=== PATIENT | female | born 1995 | race African-American/Black ===

== ENCOUNTER 2016-09-28 14:58 | Emergency (ER) | payer BC ==
[2016-09-28 15:25] VITALS: BP 117/56
--- NOTE | 2016-09-28 15:49 | UC ---
Throat Pain/Nasal George HPI - History of Current Complaint Chief Complaint: UCRespiratory Stated Complaint: SORE THROAT,COUGH Time Seen by Provider: 09/28/16 15:40 Hx Obtained From: Patient Hx Last Menstrual Period: 09/08/16 Onset/Duration: Gradual Onset - started 2 weeks ago with prolonged menses, which lasted 2 weeks (sexually active with females), ended 5-6 days ago. she has been feeling fatigued for 4 days, had a bout of nausea and then got ST 2 days ago Severity: Moderate Cough: None Associated Signs & Symptoms: Positive: Fever - Allergies/Home Medications Allergies/Adverse Reactions: Allergies Allergy/AdvReac Type Severity Reaction Status Date / Time No Known Allergies Allergy Verified 12/15/15 13:20 PMH/Surg Hx/FS Hx/Imm Hx Previously Healthy: Yes - Surgical History Surgical History: None - Family History Known Family History: Negative: Cardiac Disease, Hypertension, Diabetes - Social History Occupation: Employed Full-time Lives: With Family Alcohol Use: None Substance Use Type: None Smoking Status (MU): Never Smoked Tobacco Review of Systems Constitutional: Negative Skin: Negative Eyes: Negative ENT: Sore Throat Respiratory: Negative Cardiovascular: Negative Gastrointestinal: Nausea - x 1 day Genitourinary: Negative Neurological: Negative Psychological: Negative All Other Systems Reviewed And Are Negative: Yes Physical Exam Triage Information Reviewed: Yes Appearance: Well-Appearing, No Pain Distress, Well-Nourished Vital Signs: Initial Vital Signs Temp 99.1 F 09/28/16 15:06 Pulse 77 09/28/16 15:06 Resp 18 09/28/16 15:06 BP 117/56 09/28/16 15:06 Pulse Ox 100 09/28/16 15:06 Vital Signs Reviewed: Yes ENT: Positive: Pharyngeal erythema, TMs normal, Tonsillar swelling. Negative: Nasal drainage Respiratory Exam: Normal Cardiovascular Exam: Normal Abdominal Exam: Normal Abdomen Description: Positive: Nontender, No Organomegaly, Soft Musculoskeletal Exam: Normal Neurological Exam: Normal Psychological Exam: Normal Skin Exam: Normal Skin: Negative: rashes Throat Pain/Nasal Course/Dx - Differential Dx/Diagnosis Differential Diagnosis/HQI/PQRI: Sinusitis, Tonsillitis, URI Provider Diagnoses: URI Discharge - Discharge Plan Condition: Good Disposition: HOME Patient Education Materials: Upper Respiratory Infection (ED) Forms: *Work Release Referrals: Renard Alvarez MD [Primary Care Provider] - 3 Days (if no better) Additional Instructions: Drink plenty of fluids use tylenol or ibuprofen as directed for pain/fever start multi vitamin with iron every day
== END 2016-09-28 16:44 | disposition home or self-care (01) ==
LOC: UCEAST 14:58
DX: J06.9 Acute upper respiratory infection, unspecified (principal)
CPT/HCPCS: 87651; 99211; G0463

== ENCOUNTER 2016-12-06 15:31 | Emergency (ER) | payer BC ==
--- NOTE | 2016-12-06 17:26 | UC ---
Cardiac HPI - HPI Summary HPI Summary: PT HAS HAD URI SX FOR PAST WEEK OR SO. IS C/O MID STERNAL CP WITH COUGHING AND DECREASED APPETITE. SHE REPORTS SHE HAS HAD SIMILAR CP INTERMITTENTLY FOR ABOUT 5 MONTHS. NO CLEAR TRIGGER. NO NAUSEA, SOB, SWEATS. NOT PLEURITIC. DOES NOT DRINK CAFFEINE. SLEEPING WELL. 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 Negative: SOB, Fever - Allergy/Home Medications Allergies/Adverse Reactions: Allergies Allergy/AdvReac Type Severity Reaction Status Date / Time No Known Allergies Allergy Verified 12/15/15 13:20 PMH/Surg Hx/FS Hx/Imm Hx Previously Healthy: Yes - Surgical History Surgical History: None - Family History Known Family History: Positive: Cardiac Disease, Hypertension, Diabetes Family History: NO FAMILY HX OF SUDDEN CARDIAC - Social History Alcohol Use: Rare Substance Use Type: None Smoking Status (MU): Never Smoked Tobacco Review of Systems Constitutional: Negative ENT: Sore Throat, Nasal Discharge Respiratory: Cough Cardiovascular: Chest Pain Gastrointestinal: Negative Neurological: Headache All Other Systems Reviewed And Are Negative: Yes Physical Exam Triage Information Reviewed: Yes Appearance: Well-Appearing, No Pain Distress, Well-Nourished Vital Signs: Initial Vital Signs Temp 99.2 F 12/06/16 15:42 Pulse 76 12/06/16 15:42 Resp 18 12/06/16 15:42 BP 123/68 12/06/16 15:42 Pulse Ox 100 12/06/16 15:42 Vital Signs Reviewed: Yes Eyes: Positive: Conjunctiva Clear ENT: Positive: Hearing grossly normal, Pharynx normal, TMs normal Neck: Positive: Supple, Nontender, No Lymphadenopathy Respiratory Exam: Normal Respiratory: Positive: Other: - PAIN NOT REPRODUCIBLE WITH PALPATION Cardiovascular Exam: Normal Abdomen Description: Positive: Soft Musculoskeletal: Positive: No Edema Neurological: Positive: Alert Psychological: Positive: Age Appropriate Behavior Skin: Negative: rashes Diagnostics - Radiology CXR Xray Interpretation: No Acute Changes Radiology Interpretation Completed By: Radiologist - EKG Cardiac Rate: NL Cardiac Rhythm: Sinus: Normal Ectopy: None ST Segment: Normal - Clinical Impression Provider Diagnoses: 1. ACUTE URI. 2. NON CARDIAC CHEST PAIN Discharge - Discharge Plan Condition: Stable Disposition: HOME Patient Education Materials: Upper Respiratory Infection (ED), Noncardiac Chest Pain (ED) Forms: *Work Release Referrals: Renard Alvarez MD [Primary Care Provider] - 1 Week Additional Instructions: EKG AND CHEST XRAY TODAY BOTH UNREMARKABLE. YOU SEEM TO HAVE AN UPPER RESPIRATORY INFECTION THAT SHOULD RESOLVE ON IT'S OWN WITH TIME. YOU NEED TO FOLLOW-UP WITH YOUR PCP TO FURTHER WORK UP YOUR CHEST PAIN. GO TO ER WITHOUT FAIL IF YOU DEVELOP WORSENING CHEST PAIN, SHORTNESS OF BREATH, NAUSEA, SWEATS, DIZZINESS OR ANY OTHER CONCERNING SYMPTOMS.
--- NOTE | 2016-12-06 17:55 | RAD ---
INDICATION: Central chest pain. COMPARISON: No relevant prior exams available on the [facility] [place] for comparison. TECHNIQUE: Dual energy PA and routine lateral views of the chest were obtained. REPORT: Clear lungs and pleural spaces. Negative for pneumothorax. The heart, pulmonary vasculature, and mediastinal contours are unremarkable. Unremarkable osseous structures and soft tissue contours. IMPRESSION: No evidence for acute intrathoracic disease. Negative exam.
[2016-12-06 18:18] VITALS: BP 122/72
== END 2016-12-06 18:20 | disposition home or self-care (01) ==
LOC: UCEAST 15:31
DX: J06.9 Acute upper respiratory infection, unspecified (principal); R07.89 Other chest pain
CPT/HCPCS: 71020; 93005; 99212; G0463

== ENCOUNTER 2018-03-11 11:57 | Emergency (ER) | payer BC ==
--- NOTE | 2018-03-11 12:44 | UC ---
Throat Pain/Nasal George HPI - HPI Summary HPI Summary: Patient presents to urgent care reporting 3 days of head congestion, sinus pressure, ear fullness, postnasal drip, and cough. Patient states she's been taking DayQuil and NyQuil with little improvement. Patient denies chills but reports tactile temperatures. Patient coughing productive of clear to yellow sputum. Patient states she went to work yesterday but felt too ill to go today. Patient denied the flu vaccine this year. Patient with mild wheezing intermittently. Patient medications reviewed this visit. Patient without sick contacts - History of Current Complaint Chief Complaint: UCRespiratory Stated Complaint: COUGH, AND SORE THROAT Time Seen by Provider: 03/11/18 12:14 Hx Obtained From: Patient Hx Last Menstrual Period: 03/04/18 Onset/Duration: Gradual Onset Severity: Mild Pain Intensity: 0 - Allergies/Home Medications Allergies/Adverse Reactions: Allergies Allergy/AdvReac Type Severity Reaction Status Date / Time No Known Allergies Allergy Verified 03/11/18 12:17 PMH/Surg Hx/FS Hx/Imm Hx Previously Healthy: Yes - Surgical History Surgical History: None - Family History Known Family History: Positive: Cardiac Disease, Hypertension, Diabetes Family History: NO FAMILY HX OF SUDDEN CARDIAC - Social History Occupation: Employed Full-time Lives: Dormitory/Roommates Alcohol Use: Rare Substance Use Type: None Smoking Status (MU): Never Smoked Tobacco Review of Systems All Other Systems Reviewed And Are Negative: Yes Constitutional: Positive: Fatigue Eyes: Positive: Negative ENT: Positive: Sore Throat, Ear Ache, Nasal Discharge, Sinus Congestion Respiratory: Positive: Cough Physical Exam - Summary Physical Exam Summary: Vital Signs Reviewed: Yes A+Ox3, no distress, tired appearing Eyes: Conjunctiva Clear, DM. EOM intact and full ENT: Hearing grossly normal TM x 2 scant fluid, no erythema, no buldge, no retraction, congestion, boggy turbinates, + PND, mmoist, uvula midline, no exudate, no erythema Neck: Positive: Supple Respiratory: Positive: No respiratory distress, No accessory muscle use + CTA throughout no w/r Cardiovascular: RRR nl s1, s2 no m/r CBT <2 sec abd soft + BS nt/nd no guarding, no distension Musculoskeletal Exam: ZHOU x 4 without difficulty Strength Intact, ROM Intact Neurological: Positive: Alert, + sensation throughout Psychological: Positive: Normal Response To Family Skin: Positive: no rash, no ecchymosis Triage Information Reviewed: Yes Vital Signs: Initial Vital Signs Temp 98.5 F 03/11/18 12:15 Pulse 88 03/11/18 12:15 Resp 18 03/11/18 12:15 BP 118/73 03/11/18 12:15 Pulse Ox 99 03/11/18 12:15 Diagnostics - Radiology No standard instances Radiology Interpretation Completed By: Radiologist - Patient Name: ARA METCALF Medical Record#: [id number] Ordering Physician: Ebonie Lackey MD Acct.#: [id number] : 1995 Age: 22 Sex: F Location: [facility] Exam Date: 03/11/18 1250 ADM Status: REG ER Order Information: CHEST PA & LAT 2 VWS Accession Number: [id number] CPT: 84907 HISTORY: cough, fever, wheeze COMPARISONS: December 06, 2016 VIEWS: 4: Frontal dual-energy and lateral views of the chest. FINDINGS: CARDIOMEDIASTINAL SILHOUETTE: The cardiomediastinal silhouette is normal. SANDRA: The sandra are normal. PLEURA: The costophrenic angles are sharp. No pleural abnormalities are noted. LUNG PARENCHYMA: The lungs are clear. ABDOMEN: The upper abdomen is clear. There is no subphrenic gas. BONES AND SOFT TISSUES: No bone or soft tissue abnormalities are noted. OTHER: None. IMPRESSION: NO ACTIVE CARDIOPULMONARY DISEASE. <Electronically signed by Benito Rincon MD in OV> 03/11/18 1304 Dictated By: Benito Rincon MD Dictated Date/Time: 03/11/18 1304 Transcribed Date/Time: 03/11/18 1304 Copy to: CC:Ebonie Lackey MD; Renard Alvarez MD [facility] [place] [facility] - [place] [facility] Urgent [facility] [place] [address] [place] [address] ph ) ph ([phone]) ph ([phone]) This report is only to be considered final once signed by the Provider(s) as displayed in the "<Electronically Signed by >" field (s). Absence of a signature indicates the report is in a draft status and still needs to be finalized. In the event this document was created by someone other than the signing Provider, the individual initiating the document will be listed in the "Entered by:" or "Dictated by:" adhikari. 1 of 1 Re-Evaluation - Re-Evaluation First Eval Comment: + influenza B. Will start tamiflu. hydrate. motrin/apap. return precautions. work note. rest Throat Pain/Nasal Course/Dx - Differential Dx/Diagnosis Provider Diagnosis: Influenza B Discharge - Sign-Out/Discharge Documenting (check all that apply): Patient Departure All imaging exams completed and their final reports reviewed: Yes - Discharge Plan Condition: Stable Disposition: HOME Prescriptions: Oseltamivir CAP* [Tamiflu CAP*] 75 mg PO BID #10 cap Patient Education Materials: Influenza (DC) Forms: *Gen. Provider Communication Referrals: Renard Alvarez MD [Primary Care Provider] - Additional Instructions: - Stay well hydrated. Drink plenty of non-alcoholic, non-caffinated beverages. - Alternate ibuprofen (Advil, Motrin) 600mg and Tylenol every 3 hours for pain or fever. Take with food. Do NOT take for more than 4-5 days. - These infections are spread by secretions - do NOT share eating or drinking utensils - clean items you share with other people such as cell phones, computer mouse, TV remote, computer tablets,etc. Once you start to feel better, change your toothbrush and your pillowcase. - humidify the air in the room where you sleep - boil water, run a hot steam shower, vaporizer, cups of water by heat register - okay to take over the counter decongestant and cough medication - get plenty of restful sleep. - Take Tamiflu as prescribed until gone - contact your doctor or return with questions or concerns - Billing Disposition and Condition Condition: STABLE Disposition: Home
[2018-03-11 12:56] VITALS: BP 118/73
== END 2018-03-11 13:44 | disposition home or self-care (01) ==
LOC: UCEAST 11:57
DX: J10.1 Influenza due to other identified influenza virus with other respiratory manifestations (principal)
CPT/HCPCS: 71046; 99212; G0463

== ENCOUNTER 2018-03-15 12:47 | Emergency (ER) | payer SELFPAY | END 2018-03-15 13:30 | disposition left against medical advice (07) | LOC: UCEAST 12:47 | DX: Z53.21 Procedure and treatment not carried out due to patient leaving prior to being seen by health care provider (principal) ==

== ENCOUNTER 2018-04-22 23:56 | Emergency (ER) | payer SELFPAY ==
[2018-04-23] MEDS ORDERED: Ibuprofen TAB* 400 MG PO ONE (02:40)
[2018-04-23] MEDS ORDERED: Amoxicillin/Clavulanate TAB* 875 MG PO ONE (02:40)
--- NOTE | 2018-04-23 02:42 | ED ---
Throat Pain/Nasal Congestion - HPI Summary HPI Summary: Pt is a 22 y/o F presenting to the ED with L eye swelling onset two days ago. She was play fighting with her dog and his paw went into her eye. It started as a stye but has gotten progressively worse, and she has been trying to treat it with tea bags. - History of Current Complaint Chief Complaint: EDEyeProblem Time Seen by Provider: 04/23/18 02:25 Hx Obtained From: Patient Onset/Duration: Sudden Onset, Lasting Days, Still Present, Worse Since - 04/22/18 Severity: Moderate Associated Signs And Symptoms: Positive: Negative Cough: None - Allergies/Home Medications Allergies/Adverse Reactions: Allergies Allergy/AdvReac Type Severity Reaction Status Date / Time No Known Allergies Allergy Verified 03/11/18 12:17 PMH/Surg Hx/FS Hx/Imm Hx Previously Healthy: Yes Endocrine/Hematology History: Denies: Hx Diabetes, Hx Thyroid Disease Cardiovascular History: Denies: Hx Hypertension Respiratory History: Denies: Hx Asthma, Hx Chronic Obstructive Pulmonary Disease (COPD), Other Respiratory Problems/Disorders GI History: Denies: Hx Ulcer Infectious Disease History: No Infectious Disease History: Denies: Hx Hepatitis, Hx Human Immunodeficiency Virus (HIV), History Other Infectious Disease, Traveled Outside the [place] in Last 30 Days - Family History Known Family History: Positive: Cardiac Disease, Hypertension, Diabetes Family History: NO FAMILY HX OF SUDDEN CARDIAC - Social History Alcohol Use: Rare Substance Use Type: Reports: None Smoking Status (MU): Never Smoked Tobacco Review of Systems Negative: Fever Positive: Erythema, Other - edema All Other Systems Reviewed And Are Negative: Yes Physical Exam - Summary Physical Exam Summary: VITAL SIGNS: Reviewed. GENERAL: Patient is a well-developed and nourished female who is lying comfortable in the stretcher. Patient is not in any acute respiratory distress. HEAD AND FACE: No signs of trauma. No ecchymosis, hematomas or skull depressions. No sinus tenderness. EYES: PERRLA, EOMI x 2, Edema and tenderness of the L upper eyelid. EARS: Hearing grossly intact. Ear canals and tympanic membranes are within normal limits. MOUTH: Oropharynx within normal limits. NECK: Supple, trachea is midline, no adenopathy, no JVD, no carotid bruit, no c- spine tenderness, neck with full ROM. CHEST: Symmetric, no tenderness at palpation LUNGS: Clear to auscultation bilaterally. No wheezing or crackles. CVS: Regular rate and rhythm, S1 and S2 present, no murmurs or gallops appreciated. ABDOMEN: Soft, non-tender. No signs of distention. No rebound no guarding, and no masses palpated. Bowel sounds are normal. EXTREMITIES: FROM in all major joints, no edema, no cyanosis or clubbing. NEURO: Alert and oriented x 3. No acute neurological deficits. Speech is normal and follows commands. SKIN: Dry and warm Triage Information Reviewed: Yes Vital Signs On Initial Exam: Initial Vitals Temp Pulse Resp BP Pulse Ox 98.9 F 80 16 114/57 99 04/22/18 23:58 04/22/18 23:58 04/22/18 23:58 04/22/18 23:58 04/22/18 23:58 Vital Signs Reviewed: Yes Diagnostics - Vital Signs Vital Signs Temp Pulse Resp BP Pulse Ox 04/22/18 23:58 98.9 F 80 16 114/57 99 - Laboratory Lab Statement: Any lab studies that have been ordered have been reviewed, and results considered in the medical decision making process. EENT Course/Dx - Course Course Of Treatment: Pt is a 22 y/o F presenting to the ED with L eye swelling onset two days ago. She was play fighting with her dog and his paw went into her eye. It started as a stye but has gotten progressively worse, and she has been trying to treat it with tea bags. Pt will be discharged home with dx of phlebitis and stye in her L eye. She will be given prescriptions as well as eye drops and eye ointment, and instructions to use warm compresses. - Diagnoses Provider Diagnoses: Ophthalmitis, Hordeolum of left upper eyelid Discharge - Sign-Out/Discharge Documenting (check all that apply): Patient Departure Patient Received Moderate/Deep Sedation with Procedure: No - Discharge Plan Condition: Stable Disposition: HOME Prescriptions: Amoxicillin/Clavulanate TAB* [Augmentin TAB 875*] 875 mg PO BID #14 tab Ibuprofen TAB* [Motrin TAB* 800 MG] 800 mg PO Q6H PRN #30 tab PRN Reason: Pain Referrals: Renard Alvarez MD [Primary Care Provider] - Sabino Lombardo MD [Medical Doctor] - Additional Instructions: PLEASE TAKE YOUR PRESCRIBED MEDICINE INSTRUCTED. Use 1-2 eye drops in your left eye every four hours. Use approx. 1 inch of ointment on the left eye three times a day. Use warm compresses multiple times a day. FOLLOW UP WITH OPHTHALMOLOGY IN THE NEXT 1-2 DAYS. FOLLOW UP WITH YOUR PCP IN THE NEXT 1-2 DAYS. RETURN TO THE EMERGENCY DEPARTMENT WITH ANY NEW OR WORSENING SYMPTOMS. - Attestation Statements Document Initiated by Scribe: Yes Documenting Scribe: May Fraire Provider For Whom Alonzoe is Documenting (Include Credential): Vu Weinstein MD. Scribe Attestation: May Harris, scribed for Vu Weinstein MD. on 04/23/18 at 0257. Status of Scribe Document: Ready
[2018-04-23 04:16] VITALS: BP 135/64
[2018-04-23] MEDS ORDERED: Ciprofloxacin 0.3% OPTH.SOL* 2.5 ML BTL LEFT EYE SCH (06:00)
[2018-04-23] MEDS ORDERED: Tobramycin 0.3% OPHTH.OINT* 3.5 GM TUBE (OPTH OINTMENT) LEFT EYE SCH (09:00)
[2018-04-23] MEDS ORDERED: Tobramycin 0.3% OPHTH.SOL* 5 ML BOT (regular eye drops) LEFT EYE SCH (09:00)
== END 2018-04-23 04:10 | disposition home or self-care (01) ==
LOC: ED 23:56
DX: H00.014 Hordeolum externum left upper eyelid (principal); H10.9 Unspecified conjunctivitis
CPT/HCPCS: 99282; A9270-GY